=== PATIENT | female | born 1995 | race American Indian/Alaskan Native ===

== ENCOUNTER 2022-12-17 14:38 | Emergency (ER) | payer MEDICAID | END 2022-12-17 16:30 | disposition home or self-care (01) | LOC: JP.ED 14:38 | DX: O99.891 Other specified diseases and conditions complicating pregnancy (principal); R43.9 Unspecified disturbances of smell and taste; Z72.0 Tobacco use; Z20.822 Contact with and (suspected) exposure to COVID-19; Z3A.28 28 weeks gestation of pregnancy | CPT/HCPCS: 99283; 99284; U0002 ==

== ENCOUNTER 2024-11-03 00:16 | Emergency (ER) | payer MEDICAID ==
[2024-11-03 01:43] LABS: BASOPHILS ABSOLUTE AUTO 0.07 K/uL (0.00-0.10); BASOPHILS PERCENT AUTO 0.5 % (0.1-1.3); EOSINOPHILS ABSOLUTE AUTO 0.09 K/uL (0.00-0.40); EOSINOPHILS PERCENT AUTO 0.7 % (0.0-5.4); HEMATOCRIT 34.9 % (34.3-46.0); HEMOGLOBIN 10.4 g/dL (11.2-15.5); IMMATURE GRAN ABSOLUTE AUTO 0.05 K/uL (0.00-0.23); IMMATURE GRAN PERCENT AUTO 0.4 % (0.0-0.7); LYMPHOCYTES PERCENT AUTO 10.6 % (11.4-47.7); MEAN CORPUSCULAR HEMOGLOBIN 21.8 pg (31.6-35.5); MEAN CORPUSCULAR HGB CONC 29.8 g/dL (31.6-35.5); MEAN CORPUSCULAR VOLUME 73.3 fL (81.4-99.0); MONOCYTES ABSOLUTE AUTO 0.52 K/uL (0.20-0.90); MONOCYTES PERCENT AUTO 3.9 % (3.3-12.6); NEUTROPHILS ABSOLUTE AUTO 11.08 K/uL (1.0-7.6); NEUTROPHILS PERCENT AUTO 83.9 % (40.0-78.1); PLATELET COUNT,PLT 314 K/uL (130-375); RED BLOOD CELL COUNT 4.76 M/uL (3.77-5.24); WHITE BLOOD CELL COUNT,WBC 13.2 K/uL (3.2-11.0)
[2024-11-03] MEDS: Ketorolac 30 MG/ML SDV IM ONE (01:44)
[2024-11-03 02:03] LABS: A/G RATIO 0.7 (1.2-2.2); ALANINE AMINOTRANSFERASE,ALT 20 U/L (12-78); ALKALINE PHOSPHATASE 106 U/L (46-116); ANION GAP 10.9 mmol/L (5.0-14.0); ASPARTATE AMNIOTRANSFERASE,AST 12 U/L (15-37); BILIRUBIN TOTAL 0.2 mg/dL (0.2-1.0); BLOOD UREA NITROGEN,BUN 14 mg/dL (7-18); CALCIUM 8.6 mg/dL (8.5-10.1); CARBON DIOXIDE,CO2 24 mmol/L (21-32); CHLORIDE,CL 107 mmol/L (100-108); CREATININE 0.6 mg/dL (0.6-1.0); ESTIMATED GFR 124 mL/min (>60); GLUCOSE RANDOM 116 mg/dL (74-106); POTASSIUM,K 4.5 mmol/L (3.6-5.2); PROTEIN TOTAL,TP 7.2 g/dL (6.4-8.2); SODIUM,NA 142 mmol/L (140-148)
[2024-11-03 02:40] LABS: APPEARANCE,URINE SLIGHTLY CLOUDY (CLEAR); BILIRUBIN,URINE NEGATIVE (NEGATIVE); COLOR,URINE YELLOW (YELLOW); GLUCOSE,URINE NEGATIVE (NEGATIVE); KETONES,URINE NEGATIVE (NEGATIVE); LEUKOCYTE ESTERASE,URINE TRACE (NEGATIVE); NITRITE,URINE NEGATIVE (NEGATIVE); OCCULT BLOOD,URINE NEGATIVE (NEGATIVE); PROTEIN,URINE NEGATIVE (NEGATIVE); UROBILINOGEN,URINE 0.2 EU/dL (0.2-1.0)
[2024-11-03 02:46] LABS: AMORPHOUS SEDIMENT,URINE NOT SEEN; BACTERIA,URINE MANY; EPITHELIAL CELLS,URINE FEW; MUCUS,URINE NOT SEEN; RBC,URINE 0-5 (0-5)
== END 2024-11-03 03:46 | disposition home or self-care (01) ==
LOC: JP.ED 00:16
DX: N39.0 Urinary tract infection, site not specified (principal); M62.830 Muscle spasm of back; F17.210 Nicotine dependence, cigarettes, uncomplicated; Z79.899 Other long term (current) drug therapy
CPT/HCPCS: 36415; 80053; 81001; 83690; 85025; 86140; 96372; 99283; J1885